=== PATIENT | male | born 1995 | race Caucasian/White ===

== ENCOUNTER 2019-05-18 22:56 | Emergency (ER) | payer OTHER ==
[~2019-05-18] VITALS: Ht 185.4 cm; Wt 65.8 kg
--- NOTE | 2019-05-18 23:26 | NUR ---
BIBS FOR C/O CP X 2 DAYS . TODAY WORSE ON THE R SIDE. NO SOB. NO N/V. NO WEAKNESS. PT DESCRIBES THE PAIN TINGLING , NON- RADIATING AND SEVERITY 3/10. NO PMH. PT WAS PLACED ON A MONITOR, VSS. WILL CONT TO MONITOR ,
--- NOTE | 2019-05-19 00:32 | NUR ---
Patient discharged to home in stable condition. rx and Written and verbal after care instructions given. Patient verbalizes understanding of instruction.
[2019-05-19 00:36] VITALS: BP 115/74
== END 2019-05-19 00:37 | disposition home or self-care (01) ==
LOC: ER 23:02
DX: R09.1 Pleurisy (principal); F17.200 Nicotine dependence, unspecified, uncomplicated; Z98.890 Other specified postprocedural states; Z88.1 Allergy status to other antibiotic agents
CPT/HCPCS: 71045-TC

== ENCOUNTER 2019-05-23 23:39 | Emergency (ER) | payer OTHER ==
[~2019-05-23] VITALS: Ht 185.4 cm; Wt 65.3 kg
[2019-05-23 23:59] VITALS: BP 112/74
--- NOTE | 2019-05-24 00:05 | NUR ---
TECH AT BEDSIDE FOR EKG
== END 2019-05-24 00:48 | disposition home or self-care (01) ==
LOC: ER 23:42
DX: R07.89 Other chest pain (principal); R00.1 Bradycardia, unspecified; F17.210 Nicotine dependence, cigarettes, uncomplicated; Z98.890 Other specified postprocedural states; Z88.1 Allergy status to other antibiotic agents